=== PATIENT | male | born 1955 | race Caucasian/White ===

== ENCOUNTER → 2016-11-29 | Outpatient (CLI) | payer OTHER, MEDICARE ==
[~2016-11-29] MED LIST: ALPR2TAB2 PO; DIAZ2TAB PO; METH1ADH7 TP; MORP15TA PO; OXYC30TA64 PO; OXYC40TA21 PO
--- NOTE | 2016-11-29 21:09 | PAIN ---
DATE OF SERVICE: 11/29/2016 PROGRESS NOTE DIAGNOSES: 1. Thoracic radiculopathy with thoracic degenerative disk disease. 2. Lumbar radiculopathy with post-lumbar laminectomy syndrome. HISTORY OF PRESENT ILLNESS: The patient is a 61-year-old male who returns for followup status post thoracic epidural steroid injections, most recently on 02/16/2016 and epidural steroid injections in the caudal approach on 11/01/2016. The patient did very well with each of these with about a 75-90% improvement with the low back and 90-100% improvement with his thoracic epidural steroid injections in the past. The patient reports that he is doing fairly well. The pain is beginning to return now in the mid upper back as it was previously. He was doing well until over the past 4 days, he was doing some yard work, using a leaf blower mostly in his left hand, but that has exacerbated the pain in his mid upper back with significant pain and radiation around the left side, into the left back, left flank and anterior aspect of the lower thoracic cage on the left side, as well as some on the right, but much more on the left. The patient reports very similar to the pain he has had in the past when this has stirred up in his mid upper back. The patient did have on 06/22/2015, MRI of the thoracic spine showing moderate degenerative disk disease at T8-T9, T6-T7 with anterior endplate edema at T8-T9 with posterior protrusion at T6-T7 with negligible posterior protrusion at T7-T8 with mild neural foraminal compromise as well at those levels. The patient reports otherwise he is doing fairly well. His low back was doing much better, mid upper back, though now significantly more tender, rated at 5-8 on a scale of 10, worse with activity, bending, flexing. He has been having difficulty sleeping at night because of the pain. The patient reports no new motor or sensory deficits, no new bowel or bladder incontinence or other complaints, but again significant pain radiating again both sides, more to the left as noted. PHYSICAL EXAMINATION: VITAL SIGNS: Today, the patient's blood pressure is 112/74, pulse , respirations 18, temperature 98.1 degrees Fahrenheit. Height is 5 feet 11 inches and weighs 184 pounds. GENERAL: The patient is awake, alert, oriented, appropriate, very pleasant demeanor. HEENT: Shows normocephalic, atraumatic. Extraocular movements are intact and symmetrical. Oral cavity shows mucous membranes are moist and pink. NECK: Shows anterior throat supple without palpable lymphadenopathy noted. Swallow reflex is symmetrical. CHEST: Shows normal on inspection. Breath sounds are clear to auscultation bilaterally. HEART: Shows S1 and S2 clear. ABDOMEN: Soft, nontender, nondistended. No palpable organomegaly is noted. no rebound or guarding demonstrated. BACK: The patient's back shows spine grossly in midline. There is moderate tenderness with palpation in the mid thoracic distribution of the paraspinous muscles as well as over the spinous processes in the [id number] distribution of the thoracic spine. Again slightly more on the left than the right, but very firm musculature, which is roughly symmetrical in appearance. No evidence of atrophy or hypertrophy. No radiation of pain with palpation, but very firm, tender pain with palpation in the thoracic paraspinous muscles in this region between the shoulder blades. The patient's low back shows some moderate tenderness with palpation, but only diffusely in the low lumbar distribution without radiation as well. EXTREMITIES: The patient's upper extremities show deep tendon reflexes 2+ in the biceps and triceps tendons. 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 PLAN: Options were discussed with the patient. The patient's old chart was reviewed and his current medication regimen and updated. Current review of systems updated today as well. We will preauthorize the patient for thoracic epidural steroid injection as he has done very well with these in the past and with recent exacerbation of left primarily thoracic radiculopathy over the right. The patient just finished a Medrol Dosepak, was given to him by his primary physician and reports that it helped only to a minimal amount. The patient will return once preauthorization is obtained and we will plan on thoracic epidural steroid injection at that time. OLIVA COLLINS MD DR: LULY/pavel JOB#: [id number] / [id number]
--- NOTE | 2016-12-02 04:24 | PAIN ---
DATE OF SERVICE: 12/01/2016 ADDENDUM DIAGNOSES: 1. Thoracic radiculopathy with thoracic degenerative disk disease. 2. Lumbar radiculopathy with post-lumbar laminectomy syndrome. HISTORY OF PRESENT ILLNESS: The patient is a 61-year-old male who returns for followup status post thoracic epidural steroid injections with good results approximately 75%-90% improvement most recently on 02/16/2016, also had some epidural injections in the caudal approach in October of last year. The patient did very well with each of these and returns reporting thoracic pain, which is beginning to increase in the mid upper back as it was previously. He was doing well until the past several days. He was doing some yard work using a leaf blower mostly in the left hand, but that has exacerbated his pain significantly in the mid upper back with significant pain and radiation around the left side into the left back, left flank and anterior aspect of the left lower thoracic cage on the left side, as well as some minorly on the right, but much more intense on the left side. The patient reports very similar to the pain he had in the past when this has ____ his pain up in the mid upper back, back in 02/2016 where he responded well to the thoracic epidural steroid injection at that time. The patient had an MRI scan in 06/2015 showing moderate disk degenerative disease at T8-T9, T6-T7 with anterior endplate edema at T8-T9 with posterior protrusion at T6-T7 with negligible posterior protrusion at T7-T8 and mild neural foraminal compromise as well at those levels. The patient reports otherwise he is doing fairly well. He has been exercising daily doing some stretching and strengthening exercises on his own, which he learned from physical therapy in the distant past, but even with the stretching daily and strengthening exercises, the pain has not subsided since he was doing the yard work over the past few days. The patient rates his pain as anywhere from a 5 to an 8 on a scale of 10, worse with activity, bending, flexing, difficulty sleeping at night secondary to pain and also burning sensation at night in the mid upper back as well. The patient reports no new motor or sensory deficits. No bowel or bladder incontinence or other complaints, but again significant pain radiating to both sides, more to the left thoracic distribution is noted. PHYSICAL EXAMINATION: BACK: The patient's back once again showed grossly midline spine, moderate tenderness with palpation in the mid thoracic distribution of paraspinous muscles as well as over the spinous processes in the mid to upper distribution of thoracic spine, slightly more on the left than the right, but very firm musculature, roughly symmetrical in appearance. No evidence of atrophy, hypertrophy and symmetrical in appearance. No radiation of pain with palpation with very firm and tender musculature with palpation in the thoracic paraspinous muscles between the shoulder blades. The patient's low back shows some moderate tenderness with palpation as well, but only diffusely in the lower lumbar distribution without significant radiation in the lumbar distribution. PLAN: Options were discussed with the patient and the patient's old chart was reviewed as was his current medication regimen and updated. We will preauthorize the patient for thoracic epidural steroid injection. He has done very well with these in the past with identical symptoms and again somewhat refractory to his daily activities of stretching and strengthening exercises, which he is performing on his own. The patient also just finished Medrol Dosepak from his primary care physician, which helped only to a minor amount. The patient will return to clinic once preauthorization is obtained. We will plan on thoracic epidural steroid injection at that time. OLIVA COLLINS MD DR: LULY/pavel JOB#: [id number] / [id number]
== END | disposition home or self-care (01) ==
LOC: PNCL 10:23
PROVIDERS: ATTEND Anesthesiology
DX: M51.14 Intervertebral disc disorders with radiculopathy, thoracic region (principal); M96.1 Postlaminectomy syndrome, not elsewhere classified
CPT/HCPCS: 99212

== ENCOUNTER → 2016-12-14 | Outpatient (CLI) | payer OTHER, MEDICARE ==
--- NOTE | 2016-12-14 12:41 | KCIC ---
PROCEDURE MRI thoracic spine without contrast HISTORY Radiculopathy, chronic thoracic pain, sharp pain at times, thoracic radiculopathy left greater than right TECHNIQUE Multiplanar, multi sequential non contrast MR imaging was performed of the thoracic spine. Contrast: None COMPARISON June 22, 2015 FINDINGS Thoracic vertebral body stature and AP alignment are maintained. Thoracic cord caliber is within normal limits without significant focal signal abnormality. There is no new significant marrow edema, trace anterior T8-9 endplate edema decreased. There is again moderate degenerative disc disease at T8-T9, minimally at other levels. There is again posterior protrusion at T6-7 centrally, again mild indentation upon the ventral thecal sac with narrowing of the central canal 9-10 millimeters. There is again negligible posterior protrusion at T7-8 without spinal stenosis. There is also very shallow protrusion left lateral recess at T8-9 without significant lateral recess stenosis. There is no new significant thoracic spinal stenosis at any level. Thoracic neural foramina are not significantly narrowed, likely mild posterior narrowing of the right at T3-4 by facet. There is facet degenerative change of the inferior thoracic spine. Poorly evaluated on this exam, there is suggestion of some infiltrate of the posterior right antonietta thorax, possible 1.3 centimeter nodule in this area. As suggested on the localizer, there is degenerative disc disease of the cervical spine greatest at C6-7. There is likely mild to moderate spinal stenosis C6-7 and C5-C6, minimally at C3-4 and C4-5. Also seen on the localizer, there is advanced narrowing of the L4-5 and to a lesser degree the L5-S1 intervertebral disc spaces, spondylosis at these levels. IMPRESSION 1. There is no new significant thoracic spinal stenosis. There is shallow posterior protrusion at T6-7, negligible posterior protrusions at T7-8 and T8-9. There is again degenerative disc disease greatest at T8-9. 2. Poorly evaluated on this exam, there is suggestion of mild infiltrate of the posterior righthemi thorax, more focal nodule possible better evaluated with CT or radiographs. Findings were called to nurse Marialuisa Walton in the office of Dr. Torres 12/14/2016 at 12:39 p.m.. 3. Not fully included on this exam, there is cervical degenerative disc disease greatest at C6-7, likely mild to moderate spinal stenosis C6-7 and C5-C6 and to a lesser degree at C3-4 and C4-5. Electronically signed by: Jassi Calhoun MD (Dec 14, 2016 12:40:19)
== END | disposition home or self-care (01) ==
LOC: KCIC MRI 11:23
PROVIDERS: ATTEND Anesthesiology
DX: M54.14 Radiculopathy, thoracic region (principal)
CPT/HCPCS: 72146

== ENCOUNTER → 2016-12-15 | Outpatient (CLI) | payer OTHER, MEDICARE ==
[~2016-12-15] MED LIST changes: +CONTRAST GIVEN MC PRN; +IOHEXOL 300 MG/ML 100ML VIAL. IV ONE
--- NOTE | 2016-12-15 13:59 | KCIC ---
PROCEDURE CT chest with contrast HISTORY Infiltrate seen on MRI, smoker for 45 years TECHNIQUE After bolus of intravenous contrast, CT imaging was performed of the chest, multiplanar reconstruction images submitted. Exposure: One or more of the following individualized dose reduction techniques were utilized for this exam: 1. Automated exposure control. 2. Adjustment of the mA and/or kV according to patient size. 3. Use of iterative reconstruction technique. Contrast: 95 cc Omnipaque 300 COMPARISON None other than MRI thoracic spine 12/14/2016 FINDINGS Corresponding with the MRI findings, there is irregular, noncalcified nodular density of the right upper lobe up to 1.1 cm. There is other adjacent mild linear density probably due to fibrotic change. There is tiny 0.3 cm right middle lobe nodule sagittal image 41, also tiny right middle lobe nodule on the order of 0.3 cm sagittal image 54. There is no abnormal pericardial or pleural fluid or pneumothorax. There is mild density in the trachea along the left lateral wall and posteriorly more likely due to mucous. There is some coronary calcification. No significantly enlarged mediastinal or hilar nodes are identified. There is no abnormality visualized thyroid gland. There is no significant abnormality of the limited visualized abdominal visceral organs. Thoracic aortic caliber is within normal limits, no intraluminal flap. There is mild centrilobular emphysema with upper zone predominance. IMPRESSION 1. There is irregular nodular density of the right upper lobe up to 1.1 cm. Pulmonary consultation and PET-CT is recommended, short-term 3 month followup recommended if PET-CT not performed. 2. There is some coronary calcification. 3. Minimal density in tracheal lumen along the chaudhry is more likely due to mucous. Electronically signed by: Jassi Calhoun MD (Dec 15, 2016 13:57:50)
== END | disposition home or self-care (01) ==
LOC: KCIC CT 10:27
PROVIDERS: ATTEND Anesthesiology
DX: J98.4 Other disorders of lung (principal)
CPT/HCPCS: 71260; Q9967

== ENCOUNTER → 2017-08-10 | Outpatient (CLI) | payer OTHER, MEDICARE ==
[~2017-08-10] MED LIST changes: -CONTRAST GIVEN MC PRN; +IOHEXOL 180 MG/ML 10 ML VIAL. ONE; -IOHEXOL 300 MG/ML 100ML VIAL. IV ONE; +methylPREDNISolone ACETATE 40 MG/ML VIAL. ONE; +methylPREDNISolone ACETATE 80 MG/ML VIAL. ONE
--- NOTE | 2017-08-10 16:21 | PAIN ---
DATE OF SERVICE: 08/10/2017 DATE OF SERVICE: 08/10/2017 DIAGNOSES: 1. Lumbar radiculopathy with post-lumbar laminectomy syndrome. 2. Thoracic radiculopathy with thoracic degenerative disk disease. HISTORY OF PRESENT ILLNESS: The patient is a 62-year-old male who returns for followup status post caudal epidural steroid injections as well as thoracic epidural steroid injections, last seen November of this year. The patient had a lung lesion that showed up on a CT scan of the chest and spine, which has been worked up and found to be nonmalignant. The patient returns now with significant pain in the low back, bilateral lower extremities, worse on the right than the left with some numbness and tingling in the low back and legs as well. The patient reports it is 10 on a scale of 10 at its worst, can be as high as an 8, average about 5, and is lowest about a 4 on a scale of 10, aching, dull, sharp, shooting, cramping, sometimes constant becoming more severe. The patient reports there is some pain in the mid upper back as well. He does have some degenerative changes with a disk protrusion at C6-C7, but the low back and lateral lower extremity pain is much more of his chief complaint. The patient reports it awakens him from sleep occasionally, but he sleeps about 6 hours at a time. He can reposition and get back to sleep on most days. The patient reports no new motor or sensory deficits, no new bowel or bladder incontinence or other complaints. He is trying to quit smoking, was having difficulty resting and sleeping because of the pain. PAST MEDICAL HISTORY: Significant for alcoholism, hepatitis C, drug abuse in the past, arthritis. PREVIOUS SURGERY: Include L4-L5 diskectomy in 1994, septum surgery of the nose in 1989, knee surgery on the right x 2 and 1 on the left, cholecystectomy, kidney extraction. CURRENT MEDICATION: Updated and well documented on the patient's chart. ALLERGIES: The patient has no known drug allergies. FAMILY HISTORY: Significant for no major medical problems or conditions except for lung cancer in the patient's father. SOCIAL HISTORY: The patient does not drink alcohol, but does smoke less than a pack a day, is trying to quit smoking, has been smoking for about 44 years. The patient lives locally in [place], [place] and is on disability currently. REVIEW OF SYSTEMS: The patient's review of systems is positive for those items mentioned in history of present illness. All systems reviewed and otherwise negative. It is complete, full and well documented on the patient's chart. PHYSICAL EXAMINATION: VITAL SIGNS: Today, blood pressure is 134/76, pulse 56, respirations are 20, temperature 98.1 degrees Fahrenheit. Weight is 191 pounds. GENERAL: The patient is awake, alert, oriented, appropriate, very pleasant demeanor. HEENT: Head shows normocephalic, atraumatic. Extraocular movements are intact, symmetrical. Oral cavity, mucous membranes are moist and pink. Dentition is intact. NECK: Shows anterior throat supple without palpable lymphadenopathy noted. Swallow reflex is symmetrical. CHEST: Shows normal on inspection. Breath sounds are clear to auscultation bilaterally. HEART: Shows S1 and S2 clear. No murmurs auscultated. ABDOMEN: Soft, nontender, nondistended. No palpable organomegaly is noted. No rebound or guarding demonstrated. BACK: Shows spine grossly midline, well-healed surgical scar in the lumbar distribution again appreciated with some flattening of the lumbar lordotic curvature. The patient's thoracic spine shows normal thoracic kyphosis, with palpation on the thoracic distribution, some mild to moderate tenderness in the mid distribution of the paraspinous muscles, but not over the spinous processes, without radiation. Upper and lower distribution is nontender. Lumbar paraspinous musculature shows symmetrical on inspection, with palpation shows some moderate tenderness. There is significant tenderness in the low lumbar distribution again diffusely, but without specific radiation, without atrophy, hypertrophy or asymmetry. EXTREMITIES: Lower extremities show deep tendon reflexes are 2+ at the patellar and 1+ tendo calcaneus tendons. Motor exam is 5/5 with dorsiflexion and extension, equal bilaterally. Peripheral pulses are 1+ posterior tibial. No peripheral edema is noted. No clubbing or cyanosis. Options were discussed with the patient and the patient's old chart was reviewed as his current medication regimen updated. Current review of systems updated today as well. We will proceed with a caudal approach epidural steroid injection today with fluoroscopic guidance. Risks were again discussed including, but not limited to bleeding, infection, possibility of epidural hematoma, subsequent neurologic compromise, dural puncture, headaches, spinal cord and/or nerve damage, side effects of steroid medication and poor results regarding pain control. The patient understands and wishes to proceed. The patient will return to clinic in approximately 2 weeks for followup, was counseled on return appointment, activity levels and side effects to be aware of. DIAGNOSIS: Lumbar radiculopathy with post-lumbar laminectomy syndrome. PROCEDURE: Caudal approach epidural steroid injection under local anesthetic using C-arm fluoroscopic guidance with sterile prep and drape. MEDICATION INJECTED: A total 120 mg Depo-Medrol plus 5 mL preservative-free normal saline and 2 mL of Isovue for contrast. CONDITION AT DISCHARGE: Stable. The patient tolerated procedure well and no complications. OLIVA COLLINS MD DR: LULY/pavel JOB#: [id number] / [id number]
== END | disposition home or self-care (01) ==
LOC: PNCL 11:43
PROVIDERS: ATTEND Anesthesiology
DX: M54.16 Radiculopathy, lumbar region (principal); M96.1 Postlaminectomy syndrome, not elsewhere classified; B18.2 Chronic viral hepatitis C; M19.91 Primary osteoarthritis, unspecified site; Z72.89 Other problems related to lifestyle
CPT/HCPCS: 62323; J1030; J1040

== ENCOUNTER → 2017-08-24 | Outpatient (CLI) | payer OTHER, MEDICARE ==
[~2017-08-24] MED LIST changes: -IOHEXOL 180 MG/ML 10 ML VIAL. ONE; -methylPREDNISolone ACETATE 40 MG/ML VIAL. ONE; -methylPREDNISolone ACETATE 80 MG/ML VIAL. ONE
--- NOTE | 2017-08-24 15:15 | PAIN ---
DATE OF SERVICE: 08/24/2017 DATE OF SERVICE: 08/24/2017 DIAGNOSES: 1. Lumbar radiculopathy with post-lumbar laminectomy syndrome. 2. Thoracic radiculopathy with thoracic degenerative disk disease. HISTORY OF PRESENT ILLNESS: The patient is a 62-year-old male who returns for followup status post caudal epidural steroid injection x 1 on 08/10/2017. The patient reports about 75% improvement in the pain in his leg, still has some numbness and tingling in the right thigh, but otherwise the numbness is significantly improved. The patient reports it is starting to build up a bit, where he is noticing some pain that is tingling, burning, aching and shooting pain in the right leg and low back, but much improved from what it was. The patient reports the numbness is still present, is not significantly improved, but the pain is significantly better. The patient reports it awakens him from sleep still, but he sleeps about 6 hours at a time. He can usually reposition and get back to sleep. The patient reports the pain is a 6 on a scale of 10 at its worst, 5 on average and a 4 on a scale of 10 at its least, and is a 4 today. The patient reports no new motor or sensory deficits, no new bowel or bladder incontinence or other complaints. He has been doing well for about 3 weeks now after the injection with still good help, but it is returning to about 60% level overall. The patient reports otherwise no new changes. PHYSICAL EXAMINATION: VITAL SIGNS: The patient's blood pressure 122/79, pulse 54, respirations 20, temperature is 98.2 degrees Fahrenheit, height is 5 feet 10 inches, weight is 197 pounds. GENERAL: The patient is awake, alert, oriented, appropriate, very pleasant demeanor. HEENT: Head shows normocephalic, atraumatic. Extraocular movements are intact and symmetrical. Oral cavity shows mucous membranes moist and pink. Dentition is intact. NECK: Shows anterior throat supple without palpable lymphadenopathy noted. Swallow reflex is symmetrical. CHEST: Shows normal on inspection. Breath sounds are clear to auscultation bilaterally. HEART: Shows S1 and S2 clear. ABDOMEN: Soft, nontender, nondistended. No palpable organomegaly is noted. BACK: Shows spine grossly in midline. Well healed surgical scars noted in the lumbar distribution. Lumbar lordotic curvature is slightly flattened. Lumbar paraspinous musculature is symmetrical on inspection, with palpation shows some mild tenderness with palpation, moderate tenderness in the low lumbar distribution, more on the right than the left, but without asymmetry. The patient shows good rotational motion of the lumbar spine without significant increase in pain. LOWER EXTREMITIES: Show deep tendon reflexes 2+ in the patellar, 1+ tendo calcaneus tendons. Motor exam is strong with 5/5 dorsiflexion and extension as well as quadriceps and hamstring flexion. Straight leg raise noted to be mildly positive on the right side only at about 45 degrees with decrease with knee flexion, left side is negative. Gaenslen's and John's maneuvers are negative bilaterally. Peripheral pulses are 1+ posterior tibial. No peripheral edema is noted. Options were discussed with the patient and the patient's old chart was reviewed as his current medication regimen updated. Current review of systems updated today as well. We will preauthorize the patient for a second caudal approach epidural steroid injection as he has done very well with these in the past. He is still doing some exercises and stretching on his own. We will encourage him to keep doing this and maintain his activity level. Also has been doing some increased stretching, which he feels is helpful. We will preauthorize patient for a second caudal epidural steroid injection as noted with pain in the low back with significant improvement after the first injection in pain at the L5-S1 dermatomal distribution and have him return once this is obtained, we will proceed at that time. OLIVA COLLINS MD DR: LULY/pavel JOB#: [id number] / [id number]
== END | disposition home or self-care (01) ==
LOC: PNCL 10:28
PROVIDERS: ATTEND Anesthesiology
DX: M54.16 Radiculopathy, lumbar region (principal); M51.14 Intervertebral disc disorders with radiculopathy, thoracic region; R20.0 Anesthesia of skin
CPT/HCPCS: 99212

== ENCOUNTER → 2017-09-21 | Outpatient (CLI) | payer OTHER, MEDICARE ==
[~2017-09-21] MED LIST changes: +IOHEXOL 180 MG/ML 10 ML VIAL. ONE; +methylPREDNISolone ACETATE 40 MG/ML VIAL. ONE; +methylPREDNISolone ACETATE 80 MG/ML VIAL. ONE
--- NOTE | 2017-09-21 21:39 | PAIN ---
DATE OF SERVICE: 09/21/2017 PROGRESS NOTE FOR PAIN CLINIC DIAGNOSES: 1. Lumbar radiculopathy with lumbar post-laminectomy syndrome. 2. Thoracic radiculopathy with thoracic degenerative disk disease. HISTORY OF PRESENT ILLNESS: The patient is a 62-year-old male who returns for followup status post caudal epidural steroid injection x 1 with about 75% improvement, was preauthorized for a second injection today, would like to proceed with that, still has significant pain in the low back and bilateral lower extremities, is tingling, burning, stabbing, aching, shooting and constant, becoming more constant pain. The patient reports no new motor or sensory deficits, but still significant pain rated as a 10 on a scale of 10 at it is worst, 8 on average, 5 at its least and is a 5 today. The patient also having significant increase in pain in the mid upper back, which he has had previously and responded well to some thoracic epidural steroid injections about a year ago. The patient reports this is becoming much more noticeable, worse at night, worse with trying to sleep, it is awakening him from sleep, but the upper back, but not the low back that he is doing better with this after the last injection. The patient reports still significant pain in the upper mid back radiating to the right side more than the left in a radicular fashion in the thoracic distribution as he has had before. The patient reports sleeping about 8 hours at night, most nights except for the upper back, which has been waking him from sleep only occasionally, but not every night. The patient reports no new motor or sensory deficits, no new bowel or bladder incontinence or other complaints. PHYSICAL EXAMINATION: VITAL SIGNS: The patient's blood pressure 129/84, pulse is 69, respirations 18, temperature 97.7 degrees Fahrenheit, height is 5 feet 11 inches and weighs 194 pounds. GENERAL: The patient is awake, alert, oriented, appropriate, very pleasant demeanor. HEENT: Head shows normocephalic and atraumatic. Extraocular movements are intact and symmetrical. Oral cavity: Mucous membranes are moist and pink. Dentition is intact. NECK: Shows anterior throat supple without palpable lymphadenopathy noted. Swallow reflex is symmetrical. CHEST: Shows normal on inspection. Breath sounds are clear to auscultation bilaterally. HEART: Shows S1 and S2 clear. No murmurs auscultated. ABDOMEN: Soft, nontender and nondistended. No palpable organomegaly is noted. No rebound or guarding demonstrated. MUSCULOSKELETAL: The patient's back shows spine grossly in the midline. Well-healed surgical scar is noted in the lumbar distribution with some flattening of the lumbar lordotic curvature. With palpation shows some moderate tenderness throughout the middle and lower distribution of the paraspinous muscles bilaterally, but only diffusely without radiation. Lower extremities show deep tendon reflexes 2+ in the patellar, 1+ tendo-calcaneus tendons are equal. Motor exam is strong with 5/5 dorsiflexion and extension. Peripheral pulses are 2+. No peripheral edema is noted. The patient's upper back shows some moderate tenderness with palpation in the mid to lower distribution of the paraspinous musculature in the thoracic distribution, slightly more on the right than the left, but appears symmetrical. The patient shows good rotational motion of the thoracic spine as well both laterally as well as extension and flexion with some increased pain with extension, but not with forward flexion in the mid low back itself. Options were discussed with the patient and the patient's old chart was reviewed. His current medication regimen updated. Current review of systems updated today as well. We will proceed with a caudal approach epidural steroid injection today with fluoroscopic guidance. Risks were again discussed including, but not limited to bleeding, infection, possibility of epidural hematoma, subsequent neurologic compromise, dural puncture, headaches, spinal cord and/or nerve damage, side effects of steroid medication and poor results regarding pain control. The patient understands and wishes to proceed. The patient will return to the clinic in approximately 2 weeks for followup. He was counseled on return appointment, activity level and side effects to be aware of. DIAGNOSES: 1. Lumbar radiculopathy with post-lumbar laminectomy syndrome. 2. Thoracic radiculopathy with thoracic degenerative disk disease. PROCEDURE: Caudal approach epidural steroid injection using C-arm fluoroscopic guidance under sterile prep and drape using local anesthetic. MEDICATIONS INJECTED: A total of 120 mg of Depo-Medrol plus 10 mL of preservative free normal saline and 2 mL of Isovue for contrast. CONDITION AT DISCHARGE: Stable. The patient tolerated the procedure well and had no complications. OLIVA COLLINS MD DR: LULY/pavel JOB#: [id number] / [id number]
== END ==
LOC: PNCL 11:03
PROVIDERS: ATTEND Anesthesiology
DX: M54.16 Radiculopathy, lumbar region (principal); M96.1 Postlaminectomy syndrome, not elsewhere classified
CPT/HCPCS: 62323; J1030; J1040

== ENCOUNTER → 2017-10-25 | Outpatient (CLI) | payer OTHER, MEDICARE ==
[~2017-10-25] MED LIST changes: +PANT40TA5 PO
--- NOTE | 2017-10-26 06:33 | PAIN ---
DATE OF SERVICE: 10/25/2017 PROGRESS NOTE FOR PAIN CLINIC DIAGNOSES: 1. Lumbar radiculopathy with postlumbar laminectomy syndrome. 2. Thoracic radiculopathy with thoracic degenerative disk disease. HISTORY OF PRESENT ILLNESS: The patient is a 62-year-old male, returns for followup, status post caudal epidural steroid injections x 2, last seen on 09/21/2017. The patient did very well with this and his low back and leg pain had about 80% improvement, and his main complaint though is mid upper back as he has had some significant findings of degenerative disk changes at the T9-T10 level with a shallow protrusion at the left lateral recess at the T8-T9 level as well. The patient reports he has done fairly well with the low back and lower extremities. He has also some pain across the low back, in the left hip and gluteus, but much better, admits to increasing activity with greater ease and comfort with low back and leg. His main complaint again is mid upper back pain, slightly to the left of midline, but essentially in the midline. The patient reports it as 8 on a scale of 10 at its worst, 5 on average, 5 at its least, and is a 5 today, worse with walking, standing and changing positions, waking him from sleep occasionally, not every night, sleeps about 7-8 hours at a time. He sleeps flat on his back, the mid upper back does awaken him, his low back is no longer awakening him from sleeping, and he has been able to increase his activity with much better ease. The patient reports no new motor or sensory deficits. No new bowel or bladder incontinence. He did have bronchitis and has just finished some antibiotics about a week ago, but reports he has had some shortness of breath since that time as well as some decrease in appetite, but otherwise, he feels fairly well and he is afebrile. PHYSICAL EXAMINATION: VITAL SIGNS: Today, his blood pressure is 124/66, pulse 70, respirations 20, temperature 97.7 degrees Fahrenheit, height 5 feet 11 inches, weight is 196 pounds. GENERAL: The patient is awake, alert, oriented, appropriate, very pleasant demeanor. HEENT: Head shows normocephalic and atraumatic. Extraocular movements are intact and symmetrical. Oral cavity: Mucous membranes are moist and pink. Dentition is intact. NECK: Shows anterior throat supple without palpable lymphadenopathy noted. Swallow reflex is symmetrical. CHEST: Shows normal on inspection. Breath sounds are clear to auscultation bilaterally. HEART: Shows S1 and S2 clear. No murmurs auscultated. ABDOMEN: Soft, nontender, nondistended, no palpable organomegaly. No rebound or guarding demonstrated. BACK: Shows spine grossly in the midline. The thoracic paraspinous musculature shows some symmetry with inspection on palpation, shows some mild tenderness in the mid upper distribution and mid lower distribution in the paraspinous muscles diffusely with some minor tenderness over the spinous processes at the lower thoracic distribution. Lumbar paraspinal musculature shows symmetrical with palpation, well healed surgical scar noted in the lumbar distribution is again appreciated. Lumbar paraspinous musculature shows some moderate tenderness with palpation, but without radiation. No trigger points. No tenderness over the sacrum or sacroiliac region. The patient shows good rotational motion in both thoracic and lumbar spines without significant increase in pain. LOWER EXTREMITIES: Show deep tendon reflexes 2+ in the patella and 1+ tendocalcaneus tendons. Motor exam is strong with 5/5 dorsiflexion, extension, quadriceps, hamstring flexion equal. Peripheral pulses are 1+ in posterior tibial, no peripheral edema is noted bilaterally. PLAN: Options were discussed with the patient. The patient's old chart was reviewed as his current medication regimen updated, current review of systems updated today as well. We will proceed with a thoracic epidural steroid injection today with fluoroscopic guidance. Risks were discussed including but not limited to bleeding, infection, possibility of epidural hematoma, subsequent neurologic compromise, dural puncture headache, spinal cord and/or nerve damage, side effects to steroid medications, and poor results regarding pain control. The patient understands and wished to proceed. The patient will return to clinic in approximately 2 weeks for followup. He was counseled on return appointment, activity level, and side effects to be aware of. DIAGNOSIS: Thoracic radiculopathy with thoracic degenerative disk disease. PROCEDURE: Thoracic epidural steroid injection, translaminar approach T9-T10 level using C-arm fluoroscopic guidance under sterile prep and drape using local anesthetic. MEDICATION INJECTED: Total of 120 mg Depo-Medrol plus 10 mL of preservative-free normal saline and 2 mL of Isovue for contrast. CONDITION AT DISCHARGE: Stable. The patient tolerated the procedure well and had no complications. OLIVA COLLINS MD DR: LULY/pavel JOB#: [id number] / [id number]
== END | disposition home or self-care (01) ==
LOC: PNCL 11:24
PROVIDERS: ATTEND Anesthesiology
DX: M51.14 Intervertebral disc disorders with radiculopathy, thoracic region (principal); M54.16 Radiculopathy, lumbar region; M96.1 Postlaminectomy syndrome, not elsewhere classified
CPT/HCPCS: 62321; J1030; J1040

== ENCOUNTER → 2018-05-09 | Outpatient (CLI) | payer OTHER, MEDICARE | END | disposition home or self-care (01) | LOC: PNCL 07:48 | DX: M96.1 Postlaminectomy syndrome, not elsewhere classified (principal); M54.16 Radiculopathy, lumbar region; M51.14 Intervertebral disc disorders with radiculopathy, thoracic region | CPT/HCPCS: 99212 ==

== ENCOUNTER → 2018-05-23 | Outpatient (CLI) | payer OTHER, MEDICARE ==
[~2018-05-23] MED LIST changes: -ALPR2TAB2 PO; -DIAZ2TAB PO; +IOHEXOL 180 MG/ML 10 ML VIAL.; -IOHEXOL 180 MG/ML 10 ML VIAL. ONE; +LIDOCAINE 1% PF 2 ML VIAL.; -METH1ADH7 TP; -MORP15TA PO; -OXYC30TA64 PO; -OXYC40TA21 PO; -PANT40TA5 PO; +methylPREDNISolone ACETATE 40 MG/ML VIAL.; -methylPREDNISolone ACETATE 40 MG/ML VIAL. ONE; +methylPREDNISolone ACETATE 80 MG/ML VIAL.; -methylPREDNISolone ACETATE 80 MG/ML VIAL. ONE
== END | disposition home or self-care (01) ==
LOC: PNCL 09:50
DX: M96.1 Postlaminectomy syndrome, not elsewhere classified (principal); M51.14 Intervertebral disc disorders with radiculopathy, thoracic region
CPT/HCPCS: 62323; J1030; J1040; Q9965

== ENCOUNTER → 2019-05-14 | Outpatient (CLI) | payer OTHER, MEDICARE ==
[~2019-05-14] MED LIST changes: +ALPR2TAB2 PO; +DIAZ2TAB PO; -IOHEXOL 180 MG/ML 10 ML VIAL.; -LIDOCAINE 1% PF 2 ML VIAL.; +METH1ADH7 TP; +MORP15TA PO; +OXYC15TA PO; +OXYC27CA PO; +OXYC30TA64 PO; +OXYC40TA21 PO; +PANT40TA77 PO; -methylPREDNISolone ACETATE 40 MG/ML VIAL.; -methylPREDNISolone ACETATE 80 MG/ML VIAL.
--- NOTE | 2019-05-15 01:44 | PAIN ---
DATE OF SERVICE: 05/14/2019 DIAGNOSIS: 1. Lumbar radiculopathy with lumbar post-laminectomy syndrome. 2. Thoracic radiculopathy with thoracic degenerative disk disease. HISTORY OF PRESENT ILLNESS: The patient is a 63-year-old male who returns for followup status post caudal epidural steroid injections, last seen on 05/23/2018. The patient did very well with about a 90% improvement for the first 8 or 9 months. The patient reports that his pain is returning down the low back and mainly in the right lower extremity, posterior gluteus, posterior thigh, and posterior calf, radiating in a radicular fashion in the right side greater than left with some numbness in the left with extended walking, standing, change in positions. The patient reports it is awakening him from sleep at night and has been going on for about the last 5-6 weeks. The patient reports pain is a 9 on a scale of 10 at its worst, over the past week 5 on average and 4 at its least and is a 5 today. The patient reports it is sharp type tingling, burning, cramping, radiating into the right lower extremity greater than the left in a radicular pattern is noted. The patient reports no new motor or sensory deficits, but is causing him to have some significant fatigue in the right and left lower extremities with walking more than about 15-20 minutes. The patient reports no new motor or sensory deficits, no bowel or bladder incontinence or other complaints. PHYSICAL EXAMINATION: VITAL SIGNS: The patient's blood pressure 122/75, pulse 66, respirations 18, temperature 97.9 degrees Fahrenheit, height is 5 feet 11 inches, weight is 196 pounds. GENERAL: The patient is awake, alert, oriented, appropriate, very pleasant demeanor. HEENT: Shows normocephalic, atraumatic. Extraocular movements are intact and symmetrical. Oral cavity: Mucous membranes moist and pink. Dentition is intact. NECK: Shows anterior throat is supple without palpable lymphadenopathy noted. Swallow reflex symmetrical. CHEST: Shows normal with inspection. Breath sounds are clear to auscultation bilaterally. HEART: Shows S1, S2 clear. No murmurs auscultated. ABDOMEN: Soft, nontender, nondistended. No palpable organomegaly is noted. No rebound or guarding demonstrated. BACK: Shows spine grossly in the midline. Well-healed surgical scar noted in the lumbar distribution. Lumbar paraspinous muscle shows symmetrical on inspection. Some flattening of lumbar lordotic curvature. With palpation shows some moderate tenderness diffusely in the middle and lower distribution of paraspinous muscles bilaterally, slightly worse on the right than the left, but symmetrical without evidence of atrophy, hypertrophy. No trigger points are noted. The patient's back shows good rotation and motion both laterally greater than 10 degrees right and left as well as extension greater than 10 degrees, forward flexion 45 degrees without significant pain reported. EXTREMITIES: The patient's lower extremities show deep tendon reflexes 2+ in the patellar, 1+ tendo calcaneus tendons are equal. Motor exam is strong with 5/5 dorsiflexion, extension, quadriceps and hamstring flexion. The patient does have a mild straight leg raise, which is positive on the right at about 40 degrees, left side is negative. Gaenslen's and John's are negative bilaterally. PLAN: Options were discussed with the patient. The patient's old chart was reviewed as his current medication regimen updated. Current review of systems updated today as well. We will preauthorize the patient for a caudal approach epidural steroid injection, he has done very well with these in the past for his L5-S1 radiculopathy on the right greater than left with a caudal approach to the procedure for the L5-S1 dermatomal radiculopathy. The patient will continue doing stretching and strengthening exercises. The patient is also using his own swimming pool. He is doing some water aerobics in the pool and has been through physical therapy in the past and doing the same exercises now and he has been over the past year, especially lately over the past months. He is doing his own exercises on pool and he will continue doing these have him return in about 1-1/2 weeks as scheduled. We will plan on lumbar epidural steroid injection, caudal approach at that time at L5-S1 level for L5-S1 radiculopathy. OLIVA COLLINS MD DR: LULY/pavel JOB#: [id number] / [id number]
== END | disposition home or self-care (01) ==
LOC: PNCL 14:08
PROVIDERS: ATTEND Anesthesiology
DX: M51.15 Intervertebral disc disorders with radiculopathy, thoracolumbar region (principal); M96.1 Postlaminectomy syndrome, not elsewhere classified
CPT/HCPCS: G0463

== ENCOUNTER → 2019-06-03 | Outpatient (CLI) | payer OTHER, MEDICARE ==
[~2019-06-03] MED LIST changes: +IOHEXOL 180 MG/ML 10 ML VIAL. ONE; +methylPREDNISolone ACETATE 40 MG/ML VIAL. ONE; +methylPREDNISolone ACETATE 80 MG/ML VIAL. ONE
--- NOTE | 2019-06-03 23:37 | PAIN ---
DATE OF SERVICE: 06/03/2019 PAIN CLINIC PROGRESS NOTE DIAGNOSES: Lumbar radiculopathy with lumbar post-laminectomy syndrome. HISTORY OF PRESENT ILLNESS: The patient is a 63-year-old male who returns for followup status post preauthorization lumbar caudal epidural steroid injection. The patient has obtained this now and would like to proceed. Still has pain in low back, in the bilateral lower extremities, posterior gluteus, posterior thighs, posterior calves, right greater than left, but without motor loss. The patient reports it is worse with walking, standing, changing positions, better with sitting or lying down, does awaken him from sleep over the past few weeks as well. The patient reports it is tingling, burning, cramping in the low back and bilateral lower extremities with sharp, shooting pain, is tight, radiating in the lower extremities. The patient reports it is an 8 on a scale of 10, it is worst over the past week, 4 on average and 4 at its least, it is a 4 today. The patient reports no new motor or sensory deficits, no new bowel or bladder incontinence or other complaints. PHYSICAL EXAMINATION: VITAL SIGNS: The patient's blood pressure is 170/81, his respirations are 18, temperature 98.3 degrees Fahrenheit, pulse of 77, weight is 191 pounds. GENERAL: The patient is awake, alert, oriented, appropriate, very pleasant demeanor. HEENT: Shows normocephalic, atraumatic. Extraocular muscles are intact and symmetrical. Oral cavity: Mucous membranes are moist and pink. Dentition is intact. NECK: Shows anterior throat supple without palpable lymphadenopathy. CHEST: Shows normal with inspection. Breath sounds clear to auscultation bilaterally. HEART: Shows S1, S2 clear. No murmurs auscultated. ABDOMEN: Soft, nontender, nondistended. BACK: Shows spine grossly in the midline. Normal-appearing thoracic kyphosis and minor flattening of lumbar lordotic curvature. Well-healed surgical scar in the lumbar distribution. Lumbar paraspinous muscle shows symmetrical on inspection. On palpation shows some moderate tenderness diffusely, but without radiation. The patient has good rotational motion of the lumbar spine, both laterally as well as extension and flexion. EXTREMITIES: The patient's lower extremities show deep tendon reflexes 2+ in the patellar, 1+ tendo-calcaneus tendons. Motor exam is strong with 5/5 dorsiflexion, extension, quadriceps and hamstring flexion and symmetrical and equal. Peripheral pulses are 1+ posterior tibial. No peripheral edema is noted. Options were discussed with the patient. The patient's old chart was reviewed as well as his current medication regimen updated. Current review of systems was updated today as well. We will proceed with a caudal approach epidural steroid injection today as the first in this series with fluoroscopic guidance. Risks were again discussed including, but not limited to bleeding, infection, possibility of epidural hematoma, subsequent neurological compromise, dural puncture, headaches, spinal cord and/or nerve damage, side effects of steroid medication and poor results regarding pain control. The patient understands and wished to proceed. The patient will return to the clinic in approximately 2 weeks for followup, was counseled was counseled as to the return appointment, activity level and side effects to be aware of. DIAGNOSIS: Lumbar radiculopathy with lumbar post-laminectomy syndrome. PROCEDURE: Lumbar epidural steroid injection, caudal approach using C-arm fluoroscopic guidance under sterile prep and drape using local anesthetic. MEDICATION INJECTED: Total of 120 mg Depo-Medrol plus 10 mL of preservative-free normal saline and 2 mL of contrast. CONDITION AT DISCHARGE: Stable. The patient tolerated the procedure well, had no complications. OLIVA COLLINS MD DR: LULY/pavel JOB#: [id number] / [id number]
== END ==
LOC: PNCL 11:18
PROVIDERS: ATTEND Anesthesiology
DX: M54.16 Radiculopathy, lumbar region (principal); M96.1 Postlaminectomy syndrome, not elsewhere classified
CPT/HCPCS: 62323; J1030; J1040; Q9965

== ENCOUNTER → 2020-10-22 | Outpatient (CLI) | payer MEDICARE, BC ==
[~2020-10-22] MED LIST changes: -OXYC15TA PO; +OXYC15TA3 PO
--- NOTE | 2020-10-22 11:39 | PDOC ---
Progress Note - Pain Clinic Date of Service: DOS: DATE: 10/22/20 TIME: 11:35 Diagnosis: Dx: Lumbar radiculopathy with lumbar postlaminectomy syndrome Thoracic radiculopathy with thoracic degenerative disc disease History or Present Illness: HPI: 65-year-old male returns for follow-up last seen May 2019. Patient had caudal epidural steroid injection did very well with these with near 75% improvement patient reports that he has been putting off getting treated again due to recent viral outbreaks and is having some significant pain now he can wait no longer pain is in the low back and right lower extremity posterior gluteus posterior thigh as it was previously patient reports getting worse now for about 3 to 4months not any specific injury or accident that he is aware but getting worse with time and just general activity daily. Patient reports initially doing much better last year ago summer with increased ability to walk stand returning to household activities travel with greater ease and comfort now is returning describes tingling burning cramping severe and constant in the low back and right lower extremity patient rates his pain as a 9 on scale 10 is worse over the past week 8 on average 6 its least and is an 8 today. Patient reports no new motor or sensory deficits he is still walking daily even though it is quite painful and is covering about 1 to 2 miles on most days. Patient ports difficulty sleeping though he cannot sleep on his left side as the pain gets worse on the right side. Patient reports no new motor or sensory deficits no bowel or bladder incontinence. Patient also has some pain in the mid to lower thoracic distribution as well but is secondary as the pain the low back and right leg is much more severe. Physical Exam: VS: Blood pressure is 131/80 pulse 74 respirations are 18 temperature 90.3 F height is 510 inches weight 197 pounds PE: PHYSICAL EXAMINATION: GENERAL: The patient is awake, alert, oriented, appropriate, very pleasant demeanor HEENT: Shows normocephalic, atraumatic. Extraocular movements are intact and symmetrical. Oral cavity: Mucous membranes moist and pink. Dentition is intact. NECK: Shows anterior throat supple without palpable lymphadenopathy noted. Swallow reflex symmetrical. CHEST: Shows normal on inspection. Breath sounds are clear bilaterally, no rales rhonchi wheezes auscultated. HEART: Shows S1, S2 clear. No murmurs auscultated. ABDOMEN: Soft, nontender, nondistended, obese. No palpable organomegaly is noted. No rebound or guarding demonstrated. BACK: Shows spine grossly in the midline. Normal-appearing cervical lordotic curvature. There is slightly increased thoracic kyphosis, and some flattening of the lumbar lordotic curvature. Lumbar paraspinous muscles show symmetrical on inspection, on palpation shows some moderate tenderness diffusely throughout the upper, middle and lower distribution of the paraspinous muscles without specific trigger points, without radiation of pain. The patient has good rotational motion of the lumbar spine, both laterally as well as extension and flexion without significant difficulty. No tenderness over the spinous processes, sacrum or sacroiliac regions. EXTREMITIES: Lower extremities show deep tendon reflexes 2+ in the patellar and tendo calcaneus tendons. Motor exam is 5 on a scale of 5 with right dorsiflexion, extension, quadriceps and hamstring flexion and 5/5 on the left. Peripheral pulses are 2+ posterior tibial. No peripheral edema is noted bilaterally. Lower extremities are warm and dry to touch, equal in color and appearance. SKIN: Shows warm and dry, good turgor. No edema. No sores, rashes or bruising throughout. Procedure: Procedure: Options were discussed with the patient. Patient chart was reviewed his his current medication regimen updated current review of systems updated today as well. We will proceed with a caudal approach epidural steroid injection today with fluoroscopic guidance. Risks were discussed including but not limited to: Bleeding, infection, possibility of epidural hematoma and subsequent neurological compromise, dural puncture, headaches, spinal cord and/or nerve damage, side effects of steroid medication, and poor results regarding pain control. Patient understands wished to proceed. Patient will return to clinic in approximate 2 weeks for follow-up was counseled as to return appointment act ivity level and side effects to be aware of. Medication Injected: Med Injected: Procedure is caudal epidural steroid injection under local anesthetic using sterile prep and drape at the caudal level using C-arm fluoroscopic guidance in both AP and lateral views medications injected is 120 mg Depo-Medrol + 10 mL preservative-free normal saline and 2 mL contrast- condition at discharge is stable patient tolerated procedure well had no complications. Condition at Discharge: Condition at Discharge: Condition at discharge stable, patient tolerated procedure well and had no complications. OLIVA COLLINS MD Oct 22, 2020 11:39
== END | disposition home or self-care (01) ==
LOC: PNCL 11:35
PROVIDERS: ATTEND Anesthesiology
DX: M54.16 Radiculopathy, lumbar region (principal); M96.1 Postlaminectomy syndrome, not elsewhere classified; M51.14 Intervertebral disc disorders with radiculopathy, thoracic region; Z79.899 Other long term (current) drug therapy; Z98.890 Other specified postprocedural states
CPT/HCPCS: 62323; J1030; J1040; Q9965

== ENCOUNTER → 2021-03-17 | Outpatient (CLI) | payer OTHER ==
[~2021-03-17] MED LIST changes: -IOHEXOL 180 MG/ML 10 ML VIAL. ONE; +METH1ADH TP; -METH1ADH7 TP; -methylPREDNISolone ACETATE 40 MG/ML VIAL. ONE; -methylPREDNISolone ACETATE 80 MG/ML VIAL. ONE
--- NOTE | 2021-03-17 15:16 | KCIC ---
Coronary artery calcium score dated March 17, 2021. No comparison available. Clinical Indication: Calcium screening. Technical factors: High resolution, computed tomography of the heart was performed with ECG gating and suspended respira tion. No contrast material was administered. Post processing was performed on [facility] using diastolic phase images to measure the amount of coronary vascular calcium. Calcium scorin g was performed utilizing the Agatston Method. PQRS compliance Statement One or more of the following individualized dose reduction techniques were utilized for this study: 1. Automated exposure control 2. Adjustment of the mA and/or kV according to patient size 3. Use of iterative reconstruction technique Results: Coronary arteries: Left main coronary artery: 0 Left anterior descending coronary artery: 205.8 Left circumflex coronary artery: 103.7 Right coronary artery: 316.5 Total coronary artery calcium score: 626.0 Information is based on an analysis of the coronary arteries only. Calcium deposits do not correspond directly to the percentage of narrowing of the arteries. They do correlate directly to the amount of coronary artery plaque and to the risk of future coronary artery disease. These calcium deposits usu ally begin to form years before any symptoms develop. Early detection and modification of risk factor s, such as smoking and cholesterol intake, can slow the progress of coronary artery disease. The results should be discussed with your physician taking into account other risk factors such as a ge, gender, family history, diabetes, smoking or high cholesterol levels. Should you ever experience chest pain, difficulty breathing, discomfort radiating into your neck or a rm, or discomfort combined with lightheadedness, sweating, fainting or nausea, you should seek prompt medical attention. Conclusions: 1. Coronary atherosclerosis is present, extensive. 2. High risk of cardiovascular event within the next 2 to 5 years. 3. High probability of stenotic (potentially flow-limiting) or occlusive coronary artery disease. Recommendations: 1. Strongly consider further cardiac evaluation for pre-clinical coronary heart disease. 2. Walden aggressive cardiovascular risk factor modification as indicated based on risk profile. Additional supporting information concerning the findings and recommendation contained within this report can be found in the consensus statements on coronary vascular calcium published by the [place] [employer] and [employer] [place] [employer] and Prevention 5 Conference (Circulation 1996 ; 94: 0244-3715; J Am Yary Cardiol 2000; 36: 326-340 and Circulation 2000; 101: 111-116). Electronically signed by: Gianluca Tobar MD (03/17/2021 3:14 PM) [id number]
== END ==
LOC: KCIC CT 12:19
PROVIDERS: ATTEND Family Medicine
DX: Z13.6 Encounter for screening for cardiovascular disorders (principal)
CPT/HCPCS: 75571

== ENCOUNTER → 2021-03-17 | Outpatient (CLI) | payer MEDICARE, BC ==
--- NOTE | 2021-03-17 15:21 | KCIC ---
CT LOW DOSE LUNG SCREEN HISTORY: Lung cancer screening, smoker of 50 yrs., 1 pk/day COMPARISON: CT chest 12/15/2016 TECHNIQUE: Low-dose noncontrast CT scan of the chest. FINDINGS: Aorta and great vessels: No aneurysm of the aortic arch or thoracic aorta is seen. Mild atherosclerot ic calcification. Thyroid: No significant abnormalities. Mediastinum and lottie: No mediastinal masses or adenopathy is seen. Esophagus: The visualized esophagus is normal. Heart: The heart is normal in size. There is no pericardial effusion. Moderate coronary artery calcif ication. Airways: Bronchial wall thickening. No endobronchial masses. Lungs: Apical predominant emphysematous change. Irregular noncalcified right upper lobe nodular densi ty measuring approximately 1.0 cm, stable compared to 2017 comparison, may represent scarring. Stable 7 mm and 6 mm left lateral costophrenic angle noncalcified nodules. Numerous additional sub-6 mm nod ules bilaterally. Pleural space: There is no pneumothorax or pleural effusion. Upper abdomen: Limited evaluation of the upper abdomen is unremarkable. Osseous structures and soft tissues: Within normal limits for age. IMPRESSION: 1. Emphysematous change and bronchial wall thickening. Bilateral pulmonary nodules which are stable from 2017 and/or measure less than 6 mm diameter. 2. Moderate coronary artery calcification. LUNG RADS: Category 2: Benign appearance or behavior. Follow up: Continue annual screening with LDCT in 12 months. Exposure: One or more of the following individualized dose reduction techniques were utilized for thi s examination: 1. Automated exposure control 2. Adjustment of the mA and/or kV according to patient size 3. Use of iterative reconstruction technique. Electronically signed by: Peter Herbert MD (03/17/2021 3:19 PM) [facility]
== END ==
LOC: KCIC CT 12:23
PROVIDERS: ATTEND Family Medicine
DX: Z12.2 Encounter for screening for malignant neoplasm of respiratory organs (principal); F17.210 Nicotine dependence, cigarettes, uncomplicated; J43.9 Emphysema, unspecified; R91.1 Solitary pulmonary nodule
CPT/HCPCS: 71271